=== PATIENT | female | born 1955 | race Caucasian/White ===

== ENCOUNTER 2019-11-14 16:37 | Emergency (ER) | payer OTHER ==
[~2019-11-14] VITALS: Ht 157.5 cm; Wt 88.5 kg
[2019-11-14 17:05] VITALS: BP 135/71
--- NOTE | 2019-11-14 17:14 | NUR ---
PT AMBULATED TO [place]
--- NOTE | 2019-11-14 18:29 | NUR ---
64/F BIB FAMILY C/O ABRASION TO NOSE, BRUISE LT KNEE, LT WRIST. S/P FALL SINCE MONDAY. PT STATED FELL WITH FACE DOWN. DENIES LOC. PT WAS SEEN BY URGENT CARE PROVIDER, NO XRAY DONE. TODAY LT KNEE PAIN INCREASES. PMH;DM, HTN, HIGH CHOLESTEROL.PATIENT STATES PAIN OF 8/10 AT THIS TIME. PATIENT POSITIONED FOR COMFORT; HOB ELEVATED; BEDRAILS UP X1; BED DOWN. ER MD MADE AWARE OF PT STATUS.
[2019-11-14] MEDS ORDERED: KETOROLAC 30 MG/ML VIAL IM ONE (18:50)
--- NOTE | 2019-11-14 19:08 | NUR ---
Pt report given to ESTEFANY ROSADO. Transfer of care at this time.
--- NOTE | 2019-11-14 19:09 | NUR ---
REPORT RECEIVED FROM ASHLEE HERNANDEZ. TRANSFER OF CARE AT THIS TIME.
--- NOTE | 2019-11-14 19:10 | NUR ---
REPORTS RELIEF FROM PAIN; 0/10.
[2019-11-14 19:11] VITALS: BP 126/73
== END 2019-11-14 19:11 | disposition home or self-care (01) ==
LOC: MED 16:37
DX: S80.02XA Contusion of left knee, initial encounter (principal); S80.01XA Contusion of right knee, initial encounter; S60.222A Contusion of left hand, initial encounter; S60.221A Contusion of right hand, initial encounter; S00.31XA Abrasion of nose, initial encounter; E78.5 Hyperlipidemia, unspecified; E11.9 Type 2 diabetes mellitus without complications; I10 Essential (primary) hypertension; W19.XXXA Unspecified fall, initial encounter; Y93.89 Activity, other specified; Y92.89 Other specified places as the place of occurrence of the external cause; Y99.8 Other external cause status
CPT/HCPCS: 70160; 73110; 73562; 82948; 96372; 99283; J1885